=== PATIENT | male | born 1990 | race African-American/Black ===

== ENCOUNTER 2017-11-10 23:01 | Emergency (ER) | payer SELFPAY ==
--- NOTE | 2017-11-10 23:14 | ER Document Report ---
ED Medical Screen (RME) - General Chief Complaint: Sore Throat Stated Complaint: FEVER Time Seen by Provider: 11/10/17 23:10 Mode of Arrival: Ambulatory Information source: Patient Notes: 27-year-old male presents to ED for complaint of cough cold congestion fever flulike symptoms and sore throat since Wednesday. He states he has been coughing up green sputum and had a fever of 103 earlier today. He states he has been taken Tylenol and Motrin alternating every 4 hours. He is afebrile at this time. Temp 98.8 pulse 109 respiratory rate 21 O2 sat 98 blood pressure 138/72. Lungs are mildly congested respirations regular and unlabored. Patient states he smokes 4 cigarettes a day and drinks 2 times a week. I have greeted and performed a rapid initial assessment of this patient. A comprehensive ED assessment and evaluation of the patient, analysis of test results and completion of medical decision making process will be conducted by an additional ED providers. TRAVEL OUTSIDE OF THE [place] IN LAST 30 DAYS: No Past Medical History - Social History Chew tobacco use (# tins/day): - 4 cig per day Frequency of alcohol use: None Drug Abuse: None Renal/ Medical History: Denies: Hx Peritoneal Dialysis Physical Exam - Vital signs Vitals: Temp Pulse Resp BP Pulse Ox 98.8 F 109 H 21 H 138/72 H 98 11/10/17 23:02 11/10/17 23:02 11/10/17 23:02 11/10/17 23:02 11/10/17 23:02 Course - Vital Signs Vital signs: Temp Pulse Resp BP Pulse Ox 98.8 F 109 H 21 H 138/72 H 98 11/10/17 23:02 11/10/17 23:02 11/10/17 23:02 11/10/17 23:02 11/10/17 23:02 Doctor's Discharge - Discharge Referrals: HEALTH,EMPLOYEE [Primary Care Provider] - Follow up as needed
[2017-11-10] MEDS ORDERED: NORMAL SALINE 1000 ML 1,000 ML IV ONE (23:35)
--- NOTE | 2017-11-10 23:37 | RADIOLOGY REPORT (SQ) ---
EXAM DESCRIPTION: XR CHEST 2 VIEWS COMPLETED DATE/TME: 11/10/2017 23:11 CLINICAL HISTORY: 27 years Male, cough congestion fever COMPARISON: None. FINDINGS: Adequate lung volume, clear parenchyma, normal cardiac silhouette, and intact bony thorax. IMPRESSION: No acute cardiopulmonary findings.
[2017-11-10] MEDS ORDERED: METHYLPREDNISOLONE INJ 125 MG/2 ML SDV IV ONE (23:47)
[2017-11-10] MEDS ORDERED: IPRATROPIUM/ALBUTEROL 0.5-2.5 MG/3 ML AMPUL NEB ONE (23:47)
[2017-11-10 23:48] LABS: A TYPE INFLUENZA AG NEGATIVE (NEGATIVE); B INFLUENZA AG NEGATIVE (NEGATIVE)
[2017-11-10 23:57] LABS: ABSOLUTE BASOPHILS # (AUTO) 0.1 10^3/uL (0.0-0.2); ABSOLUTE EOSINOPHILS # (AUTO) 0.2 10^3/uL (0.0-0.6); ABSOLUTE LYMPHOCYTES (AUTO) 1.8 10^3/uL (0.5-4.7); ABSOLUTE MONOCYTES (AUTO) 0.9 10^3/uL (0.1-1.4); ABSOLUTE NEUT (AUTO) 5.4 10^3/uL (1.7-8.2); BASOPHILS % (AUTO) 0.7 % (0-2); EOSINOPHILS % (AUTO) 1.9 % (0-6); HEMATOCRIT 46.1 % (37.9-51.0); HEMOGLOBIN 15.8 g/dL (13.5-17.0); LYMPHOCYTES % (AUTO) 21.8 % (13-45); MEAN CORPUSCULAR HEMOGLOBIN 33.6 pg (27.0-33.4); MEAN CORPUSCULAR HGB CONC 34.3 g/dL (32.0-36.0); MEAN CORPUSCULAR VOLUME 98 fl (80-97); MONOCYTES % (AUTO) 10.6 % (3-13); PLATELET COUNT 285 10^3/uL (150-450); RED BLOOD COUNT 4.71 10^6/uL (4.35-5.55); RED CELL DISTRIBUTION WIDTH 13.9 % (11.5-14.0); TOTAL CELLS COUNTED % (AUTO) 100 %; WHITE BLOOD COUNT 8.4 10^3/uL (4.0-10.5)
[2017-11-11 00:08] LABS: ALANINE AMINOTRANSFERASE 24 U/L (21-72); ALKALINE PHOSPHATASE 59 U/L (38-126); ANION GAP 8 (5-19); ASPARTATE AMINO TRANSFERASE 34 U/L (17-59); BILIRUBIN,DIRECT 0.2 mg/dL (0.0-0.4); BILIRUBIN,TOTAL 0.7 mg/dL (0.2-1.3); BLOOD UREA NITROGEN 9 mg/dL (7-20); CALCIUM 9.4 mg/dL (8.4-10.2); CARBON DIOXIDE 27 mmol/L (22-30); CHLORIDE 106 mmol/L (98-107); GLUCOSE 90 mg/dL (75-110); POTASSIUM 3.7 mmol/L (3.6-5.0); SODIUM 141.4 mmol/L (137-145); TOTAL PROTEIN 7.6 g/dL (6.3-8.2)
--- NOTE | 2017-11-11 00:39 | ER Document Report ---
ED ENT - General Chief Complaint: Sore Throat Stated Complaint: FEVER Time Seen by Provider: 11/10/17 23:10 Mode of Arrival: Ambulatory Information source: Patient Notes: Patient is a 27-year-old black male comes to emergency room complaining of fever. States his fevers been up to 103 and he has been taking Tylenol alternating with Motrin every 4 hours keep the fever down. He complains of having formed throat neck pain headache and body aches and pains. He also complains of having congestion runny nose with cough. He smokes about 4 cigarettes a day. 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 He does state that he has been exposed to some type of a cold by his girlfriend but his is worse than hers was. Patient states he just aches all over and complains of neck pain as well. TRAVEL OUTSIDE OF THE [place] IN LAST 30 DAYS: No - HPI Patient complains to provider of: Nose problem, Throat problem Onset: Other - 3 days ago Onset/Duration: Gradual, Worse Quality of pain: Achy Severity: Moderate Pain Level: 3 Context: Recent Illness Location of pain: Ears, Neck, Nose, Sinus, Throat Associated symptoms: Ear pain, Fever, Headache, Neck pain, Runny nose, Sinus drainage, Sore throat, Stiff neck Similar symptoms previously: No Recently seen / treated by doctor: No - Related Data Allergies/Adverse Reactions: No Known Allergies Allergy (Unverified 11/11/17 00:38) Past Medical History - General Information source: Patient - Social History Smoking Status: Current Every Day Smoker Cigarette use (# per day): Yes Chew tobacco use (# tins/day): Yes - 4 cig per day Smoking Education Provided: Yes Frequency of alcohol use: None Drug Abuse: None 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 Denies: Hx Peritoneal Dialysis GI Medical History: Reports: None Musculoskeletal Medical History: Reports None Skin Medical History: Reports None Psychiatric Medical History: Reports: None Traumatic Medical History: Reports: None Infectious Medical History: Reports: None Surgical Hx: Negative Review of Systems - Review of Systems -: Yes ROS unobtainable due to patient's medical condition Constitutional: No symptoms reported EENT: Ear pain, Nose pain, Nose congestion, Sinus pressure, Throat pain Cardiovascular: No symptoms reported Respiratory: Cough, Short of breath, Sputum, Wheezing Gastrointestinal: No symptoms reported Genitourinary: No symptoms reported Male Genitourinary: No symptoms reported Musculoskeletal: No symptoms reported, Joint pain, Muscle pain Skin: No symptoms reported Hematologic/Lymphatic: No symptoms reported Neurological/Psychological: No symptoms reported -: Yes All other systems reviewed and negative Physical Exam - Vital signs Vitals: Temp Pulse Resp BP Pulse Ox 98.8 F 109 H 21 H 138/72 H 98 11/10/17 23:02 11/10/17 23:02 11/10/17 23:02 11/10/17 23:02 11/10/17 23:02 Interpretation: Hypertensive, Tachycardic - Notes Notes: As stated is a very pleasant 27-year-old black male who appears somewhat ill. He is presentation shows him to be tachycardic and little hypertensive. - General General appearance: Other - Ill-appearing - HEENT Head: Normocephalic, Atraumatic Eyes: Normal Conjunctiva: Normal Sinus: Frontal, Maxillary Nasal: Swelling, Other - Examination of head and upper airway showed nasal mucosa to be moderately erythematous and edematous rhinorrhea noted oral mucosa somewhat dry. Oropharynx shows moderate to severe erythema throughout uvula is midline slightly swollen with erythema as well and there is no encroachment on the uvula at this time patient's airway is patent currently. There is no exudates noted. Patient displays bilateral TMs to be bulging with no air-fluid levels. External canals have some cerumen in but does not obstructed total vision of the TMs. Mouth/Lips: Normal Mucous membranes: Dry Pharynx: Erythema, Post nasal drainage, Uvular edema. No: Exudate, Peritonsillar abscess, Retropharyngeal abscess, Tonsillar hypertrophy, Potential airway comprom. Neck: Lymphadenopathy, Other - Examination patient's neck is slightly concerning but definitely not meningismus at this time. He does have some tenderness to palpation has some rigidity when he attempted movement with passive range of motion but he does have full range of motion. Presentation of a meningitis is very low slim at this point.. No: Anterior cervical chain, Posterior cervical chain, Brudzinski, Carotid bruit, Shotty nodes, Subcutaneous emphysema, Supple, Thyroid nodule, Thyromegally - Cardiovascular Rhythm: Regular, Tachycardia Heart sounds: Normal auscultation Murmur: No - Abdominal Inspection: Normal Distension: No distension Bowel sounds: Normal Tenderness: Nontender Organomegaly: No organomegaly - Neurological Neuro grossly intact: Yes Cognition: Normal Orientation: AAOx4 [place] Coma Scale Eye Opening: Spontaneous [place] Coma Scale Verbal: Oriented [place] Coma Scale Motor: Obeys Commands [place] Coma Scale Total: 15 Speech: Normal - Skin Skin Temperature: Warm Skin Moisture: Dry Skin Color: Normal Skin Turgor: Elastic Course - Re-evaluation Re-evalutation: 11/11/17 00:59 Reevaluation patient after receiving the IV fluids and steroids seem to have made him feel much better. His lungs actually show bilateral breath sounds increased but with still a faint expiratory wheeze. Still oral examination shows erythema throughout the posterior pharynx and patient still feels a little achy all over. The stiffness in the neck is definitely improved. Believe the stiffness is more related to his fever and generalized flu type symptom. I have informed patient that we will send him home on steroids for this bronchitis presentation but antibiotics were probably negative do him any good at this point. I have also informed him he does not need to have patient contact for the next 48 hours and go home and get some sleep. - Vital Signs Vital signs: Temp Pulse Resp BP Pulse Ox 98.8 F 109 H 21 H 138/72 H 98 11/10/17 23:05 11/10/17 23:05 11/10/17 23:05 11/10/17 23:05 11/10/17 23:05 - Laboratory Result Diagrams: 11/10/17 23:48 11/10/17 23:48 Laboratory results interpreted by me: 11/10/17 23:48 MCV 98 H MCH 33.6 H Discharge - Discharge Clinical Impression: Upper respiratory infection Fever Qualifiers: Fever type: unspecified Qualified Code(s): R50.9 - Fever, unspecified Condition: Stable Disposition: HOME, SELF-CARE Instructions: Fever ([facility]), Upper Respiratory Illness ([facility]) Additional Instructions: Home and rest continue with Tylenol alternating Motrin every 4 hours to keep the fever down. Push fluids as much as possible and eating will come over time. Should you have any concerns or should you start getting worse and fever is not going down with the medications return to ER for recheck. Highly suggest that you monitor the breathing with the wheezing. This is something may turn into something more substantial. Should you have any concerns or problems or if the neck should become more stiff need to return to ER for recheck. Prescriptions: Albuterol Sulfate [Proair HFA Inhalation Aerosol 8.5 gm MDI] 2 puff IH Q4H PRN # 1 mdi PRN Reason: Ibuprofen 800 mg PO TID #30 tablet Prednisone [Sterapred Ds] 10 mg PO ASDIR PRN #1 tab.ds.pk PRN Reason: Forms: Elevated Blood Pressure, Return to Work Referrals: HEALTH,EMPLOYEE [ACTIVE STAFF] - Follow up as needed
[2017-11-11 01:09] VITALS: BP 130/77
[2017-11-11] MEDS ORDERED: ALBUTEROL SULFATE HFA (90 MCG/PUFF) 8 GM MDI (1 MDI/ER DISP) IH PRN (01:10)
== END 2017-11-11 01:36 | disposition home or self-care (01) ==
LOC: ER 23:01
DX: J06.9 Acute upper respiratory infection, unspecified (principal); R50.9 Fever, unspecified; F17.210 Nicotine dependence, cigarettes, uncomplicated
CPT/HCPCS: 94640; 99283; 96361; 96374; 36415; 87070; 87880; 85025; 86308; 80053; 87804; 71046; J2930; J3490; J7620

== ENCOUNTER 2018-05-04 15:29 | Emergency (ER) | payer SELFPAY ==
[2018-05-04] MEDS ORDERED: DEXAMETHASONE SOD PHOS INJ 10 MG/1 ML VIAL IM ONE (17:14)
--- NOTE | 2018-05-04 17:20 | ER Document Report ---
HPI - HPI Time Seen by Provider: 05/04/18 16:33 Pain Level: 5 Notes: Patient is an otherwise healthy 27-year-old male who presents with 3-day history of sore throat, body aches and chills. He reports low-grade fevers at home. Denies any nausea, vomiting or diarrhea. - CONSTITUTIONAL Constitutional: REPORTS: Fever, Chills - EENT EENT: REPORTS: Sore Throat - x 3 days. DENIES: Ear Pain, Eye problems - NEURO Neurology: DENIES: Headache, Weakness, Vision blurred, Dizzinesss / Vertigo - CARDIOVASCULAR Cardiovascular: DENIES: Chest pain - RESPIRATORY Respiratory: DENIES: Trouble Breathing, Coughing - GASTROINTESTINAL Gastrointestinal: DENIES: Abdominal Pain, Black / Bloody Stools - URINARY Urinary: DENIES: Dysuria, Urgency, Frequency - MUSCULOSKELETAL Musculoskeletal: DENIES: Extremity pain Past Medical History - General Information source: Patient - Social History Smoking Status: Current Every Day Smoker Chew tobacco use (# tins/day): No Frequency of alcohol use: Social Drug Abuse: None Family History: None Patient has suicidal ideation: No Patient has homicidal ideation: No - Medical History Medical History: Negative Renal/ Medical History: Denies: Hx Peritoneal Dialysis Surgical Hx: Negative - Immunizations Immunizations up to date: Yes Vertical Provider Document - CONSTITUTIONAL Notes: PHYSICAL EXAMINATION: GENERAL: Well-appearing, well-nourished and in no acute distress. HEAD: Atraumatic, normocephalic. EYES: Pupils equal round extraocular movements intact, conjunctiva are normal. ENT: Nares patent, mild tonsillar swelling and erythema with small amount of exudates, no evidence of peritonsillar abscess NECK: Normal range of motion LUNGS: No respiratory distress Musculoskeletal: Normal range of motion NEUROLOGICAL: Normal speech, normal gait. PSYCH: Normal mood, normal affect. SKIN: Warm, Dry, normal turgor, no rashes or lesions noted. - INFECTION CONTROL TRAVEL OUTSIDE OF THE [place] IN LAST 30 DAYS: No Course - Re-evaluation Re-evalutation: Rapid strep was negative. Patient was given IM Decadron. Diagnosed with pharyngitis. Strict ED return precautions were discussed to include worsening throat pain, difficulty breathing or unable to swallow. - Vital Signs Vital signs: Temp Pulse Resp BP Pulse Ox 98.9 F 86 16 148/81 H 98 05/04/18 15:34 05/04/18 15:34 05/04/18 15:34 05/04/18 15:34 05/04/18 15:34 Discharge - Discharge Clinical Impression: Pharyngitis Qualifiers: Pharyngitis/tonsillitis etiology: unspecified etiology Qualified Code(s): J02.9 - Acute pharyngitis, unspecified Condition: Stable Disposition: HOME, SELF-CARE Additional Instructions: SORE THROAT: Sore throats may be caused by viruses, bacteria, or fungi. Most are due to a virus, and must get better on their own. Bacterial sore throats, particularly those due to "strep," need treatment with antibiotics. If an antibiotic is prescribed, be sure to take the medication for a full 10 days. Failure to take the antibiotic can result in complications such as rheumatic fever. Sometimes, an injection of antibiotics is given instead of pills or liquid. This single "shot" is equal in effectiveness to the oral medication. To relieve symptoms, take acetaminophen for pain. Sip clear liquids frequently, or eat popsicles or ice chips. Anesthetic sprays or lozenges may help. Make sure the air in the room is not too dry. Avoid using decongestants or antihistamines. Call the doctor if there is no improvement in two days, or if you have difficulty breathing, increasing throat pain, high fever, rash, or frequent vomiting. STEROID MEDICATION: You have been given a medicine of the cortisone/steroid class. This medication is used to control inflammation or allergy. It is usually only given for a short period of time, until the acute process subsides. There are usually no side effects from short-term use of cortisone-like medications. Some persons feel an increased sense of well-being and are not sleepy at bedtime. Long-term use of cortisone medications is best avoided, unless required for a severe condition. If your condition does not remit, or relapses after the course of corticosteroid medication, you should consult your physician. Salt and Soda Solution 1 quart of water 1 tablespoon of salt 1 teaspoon of baking soda Mixed 3 ingredients together and boil for 1 minute Placed in a covered quart jar Use 1/2 ounce of cold solution to gargle 3 times a day FOLLOW-UP CARE: If you have been referred to a physician for follow-up care, call the physicians office for an appointment as you were instructed or within the next two days. If you experience worsening or a significant change in your symptoms, notify the physician immediately or return to the Emergency Department at any time for re-evaluation. The rapid strep test today was negative. At this time there is no indication to start you on antibiotic. A culture was sent to the lab and if this grows out a bacteria we will call you and start you on an antibiotic. In the meanwhile you were given a shot of Decadron which is a steroid this will help reduce some inflammation and swelling in the tonsillar area and should help with some of the pain. Please take ibuprofen 600 mg every 6 hours [id number] for the next 1-2 days. Drink plenty of fluids warm or cold is okay whichever one gives you most relief. You may also try salt water gargles as outlined above. Forms: Return to Work
[2018-05-04 17:40] VITALS: BP 147/89
== END 2018-05-04 17:45 | disposition home or self-care (01) ==
LOC: ER 15:29
DX: J02.9 Acute pharyngitis, unspecified (principal); J35.1 Hypertrophy of tonsils; R50.9 Fever, unspecified; F17.200 Nicotine dependence, unspecified, uncomplicated
CPT/HCPCS: 99283; 96372; 87070; 87880; J1100